=== PATIENT | male | born 1955 | race African-American/Black ===

== ENCOUNTER 2019-06-21 16:33 | Emergency (ER) | payer OTHER ==
[2019-06-21] MEDS ORDERED: Dexamethasone 10 MG/ML VIAL ONE (18:10)
[2019-06-21] MEDS ORDERED: HYDROcodone/Acetaminophen 10/325 mg Tablet ONE (18:12)
[2019-06-21] MEDS ORDERED: Dexamethasone 4 mg/ml Vial ONE (18:12)
== END 2019-06-21 19:13 | disposition home or self-care (01) ==
LOC: ERS 16:33
DX: M54.42 Lumbago with sciatica, left side (principal); I10 Essential (primary) hypertension; J44.9 Chronic obstructive pulmonary disease, unspecified; Z87.891 Personal history of nicotine dependence; Z79.899 Other long term (current) drug therapy
CPT/HCPCS: 96372; 99283; J1100

== ENCOUNTER 2021-12-14 07:51 | Outpatient (CLI) | payer OTHER ==
[2021-12-14] MEDS ORDERED: ISOVUE-370 76%-LOCM 1 ML ONE (08:00)
== END 2021-12-14 07:52 | disposition home or self-care (01) ==
LOC: BICCT 07:51
PROVIDERS: ATTEND Urology
DX: C61 Malignant neoplasm of prostate (principal); M47.816 Spondylosis without myelopathy or radiculopathy, lumbar region; M47.817 Spondylosis without myelopathy or radiculopathy, lumbosacral region; M51.36 Other intervertebral disc degeneration, lumbar region; I70.0 Atherosclerosis of aorta; E27.8 Other specified disorders of adrenal gland
CPT/HCPCS: 74178; 82565; Q9966

== ENCOUNTER 2022-01-30 07:45 | Outpatient (CLI) | payer OTHER ==
[2022-01-30] MEDS ORDERED: Magnevist 469MG/ML 20 ML VIAL ONE (10:13)
== END 2022-01-30 07:46 | disposition home or self-care (01) ==
LOC: TBSIIMAG 07:45 → SJX 07:46
PROVIDERS: ATTEND Urology
DX: C61 Malignant neoplasm of prostate (principal)
CPT/HCPCS: 72197; 78306; 82565; A9503; A9579

== ENCOUNTER 2022-02-26 12:21 | Outpatient (CLI) | payer OTHER ==
[2022-02-26 13:44] LABS: #Basophils 0.1 10x3/uL (0.0-0.2); #Eosinphils 0.2 10x3/uL (0.0-0.5); #Monocytes 0.5 10x3/uL (0.0-1.1); #Neutrophils 2.4 10x3/uL (1.5-8.4); %Basophils 0.9 % (0.0-2.0); %Eosinophils 3.9 % (0.0-6.0); %Lymphocytes 41.8 % (18.0-47.0); %Monocytes 9.3 % (0.0-10.0); %Neutrophils 43.9 % (40.0-75.0); Hemoglobin 14.2 g/dL (13.5-17.5); Mean Corpuscular HGB CONC 33.9 g/dL (32.0-36.0); Mean Corpuscular Hemoglobin 31.3 pg (27.0-33.0); Mean Corpuscular Volume 92.5 fl (81.2-95.1); Mean Platelet Volume 9.5 fl (7.4-10.4); Platelet Count 210 10x3/uL (150-450); RBC Distribution Width 12.3 % (11.5-14.5); Red Blood Cell (RBC) Count 4.53 10x6/uL (4.32-5.72); White Blood Cell (WBC) Count 5.6 10x3/uL (3.5-10.5)
[2022-02-26 14:03] LABS: ALT (SGPT) 13 U/L (8-55); AST (SGOT) 17 U/L (5-34); Albumin 4.4 g/dL (3.4-4.8); Alkaline Phosphatase 90 U/L (40-110); Anion Gap 15 mmol/L (10-20); BUN (Urea Nitrogen) 9 mg/dL (8.4-25.7); Bilirubin, Total 0.6 mg/dL (0.2-1.2); Calc. Creatinine Clearance 0 mL/min (70-130); Calcium 9.5 mg/dL (7.8-10.44); Carbon Dioxide 25 mmol/L (23-31); Chloride 104 mmol/L (98-107); Estimated GFR 89; Glucose 95 mg/dL (80-115); Potassium 4.2 mmol/L (3.5-5.1); Protein, Total 6.4 g/dL (5.8-8.1); Sodium 140 mmol/L (136-145)
== END 2022-02-26 12:22 | disposition home or self-care (01) ==
LOC: LABBT 12:21
PROVIDERS: ATTEND Internal Medicine Cardiovascular Disease
DX: Z01.812 Encounter for preprocedural laboratory examination (principal); Z20.822 Contact with and (suspected) exposure to COVID-19
CPT/HCPCS: 80053; 85025; 87811

== ENCOUNTER 2022-03-01 05:53 | Day surgery (SDC) | payer OTHER ==
[2022-02-27 11:38] VITALS: BMI 34.2
[2022-03-01] MEDS ORDERED: Lidocaine 1% (PF) 30 ML VIAL ONE (06:59)
[2022-03-01 07:43] LABS: Cardiac Risk 3.2 (Less than 4.5)
[2022-03-01] MEDS ORDERED: Fentanyl 100 MCG/2 ML VIAL ONE (08:34)
[2022-03-01] MEDS ORDERED: Midazolam HCl 2 mg/2 ml Vial ONE (08:35)
[2022-03-01] MEDS ORDERED: TICAGRELOR 90 MG TABLET ONE (09:42)
[2022-03-01] MEDS ORDERED: Heparin 10,000 UNITS/ 10 ML VIAL ONE (09:42)
[2022-03-01] MEDS ORDERED: Iopamidol 370 76% 100 ML VIAL ONE (15:00)
[2022-03-01] MEDS ORDERED: Acetaminophen 500 MG TAB ONE (15:40)
== END 2022-03-01 16:00 | disposition home or self-care (01) ==
LOC: SDC 05:53
PROVIDERS: ATTEND Internal Medicine Cardiovascular Disease
PROC: 4A023N7 Measurement of Cardiac Sampling and Pressure, Left Heart, Percutaneous Approach (ICD-10-PCS; principal; 2022-03-01)
PROC: B2121ZZ Fluoroscopy of Single Coronary Artery Bypass Graft using Low Osmolar Contrast (ICD-10-PCS; principal; 2022-03-01)
PROC: B2111ZZ Fluoroscopy of Multiple Coronary Arteries using Low Osmolar Contrast (ICD-10-PCS; principal; 2022-03-01)
PROC: B2181ZZ Fluoroscopy of Left Internal Mammary Bypass Graft using Low Osmolar Contrast (ICD-10-PCS; principal; 2022-03-01)
DX: I25.10 Atherosclerotic heart disease of native coronary artery without angina pectoris (principal); T82.857A Stenosis of other cardiac prosthetic devices, implants and grafts, initial encounter; I10 Essential (primary) hypertension; E78.5 Hyperlipidemia, unspecified; J44.9 Chronic obstructive pulmonary disease, unspecified; Z87.891 Personal history of nicotine dependence; Z79.1 Long term (current) use of non-steroidal anti-inflammatories (NSAID); Z79.82 Long term (current) use of aspirin; Z79.899 Other long term (current) drug therapy
CPT/HCPCS: 80061; 85347; 92928; 93005; 99152; 99153; C1725; C1769; C1876; J1644; J2001; J2250; J3010; Q9967

== ENCOUNTER 2022-08-15 11:09 | Outpatient (CLI) | payer OTHER | END 2022-08-15 11:10 | disposition home or self-care (01) | LOC: BICCT 11:09 | PROVIDERS: ATTEND Internal Medicine | DX: Z12.2 Encounter for screening for malignant neoplasm of respiratory organs (principal); J45.909 Unspecified asthma, uncomplicated | CPT/HCPCS: 71271 ==

== ENCOUNTER 2024-07-16 10:38 | Emergency (ER) | payer OTHER ==
[2024-07-16] MEDS ORDERED: Acetaminophen 500 MG TAB ONE (11:09)
[2024-07-16 11:17] LABS: #Basophils 0.03 10x3/uL (0.0-0.2); %Basophils 0.6 % (0.0-1.0); %Eosinophils 4.1 % (0.0-10.0); %Lymphocytes 21.3 % (21.0-51.0); %Monocytes 10.1 % (0.0-10.0); %Neutrophils 63.7 % (42.0-75.0); Hematocrit 38.5 % (42.0-52.0); Hemoglobin 12.5 g/dL (14.0-18.0); Mean Corpuscular HGB CONC 32.5 g/dL (32.0-36.0); Mean Corpuscular Hemoglobin 29.9 pg (27.0-31.0); Mean Corpuscular Volume 92.1 fL (78.0-98.0); Mean Platelet Volume 8.8 fL (7.4-10.4); Platelet Count 149 10x3/uL (130-400); RBC Distribution Width 13.4 % (11.5-14.5); Red Blood Cell (RBC) Count 4.18 mill/uL (4.70-6.10)
[2024-07-16 11:39] LABS: INR-International Normal Ratio 1.1; Prothrombin Time 14.3 sec (12.0-14.7)
[2024-07-16 11:40] LABS: PTT 36.6 sec (22.9-36.1)
[2024-07-16 11:43] LABS: ALT (SGPT) 36 U/L (Less than 45); AST (SGOT) 34 U/L (11-34); Albumin 3.7 g/dL (3.1-4.5); Alkaline Phosphatase 81 U/L (40-110); Anion Gap 12 mmol/L (10-20); BUN (Urea Nitrogen) 12 mg/dL (8.4-25.7); Bilirubin, Total 0.5 mg/dL (0.3-1.2); Calc. Creatinine Clearance 0 mL/min (70-130); Calcium 9.1 mg/dL (7.8-10.44); Carbon Dioxide 24 mmol/L (23-31); Chloride 106 mmol/L (98-107); Estimated GFR 85; Globulin 2.3 g/dL (2.4-3.5); Glucose 105 mg/dL (80-115); Sodium 138 mmol/L (136-145)
[2024-07-16] MEDS ORDERED: Benzonatate 100 MG CAP ONE (13:26)
== END 2024-07-16 14:31 | disposition home or self-care (01) ==
LOC: ERS 10:38
DX: R04.0 Epistaxis (principal); J06.9 Acute upper respiratory infection, unspecified; Z87.891 Personal history of nicotine dependence; J44.9 Chronic obstructive pulmonary disease, unspecified; I10 Essential (primary) hypertension; Z95.1 Presence of aortocoronary bypass graft
CPT/HCPCS: 36415; 80053; 85025; 85610; 85730; 99283